=== PATIENT | male | born 1955 | race Caucasian/White ===

== ENCOUNTER → 2025-02-14 11:27 | Outpatient (BNVA) | payer MEDICARE, OTHER, SELFPAY | PROVIDERS: Visit Provider Student in an Organized Health Care Education/Training Program | DX: Z95.828 Presence of other vascular implants and grafts (principal) | CPT/HCPCS: 99204 ==

== ENCOUNTER → 2025-04-01 11:21 | Outpatient (BNVA) | payer MEDICARE, OTHER, SELFPAY | PROVIDERS: Visit Provider Student in an Organized Health Care Education/Training Program | DX: Z97.8 Presence of other specified devices (principal) | CPT/HCPCS: 99214 ==

== ENCOUNTER 2025-04-13 06:12 | Day surgery (SDC) | payer MEDICARE, OTHER, SELFPAY ==
[2025-04-13] VITALS (8 sets, daily range): BP systolic 141–162; BP diastolic 71–88; PULSE 84–87; RESP 16–18; TEMP 36.6–36.9; O2SAT 98–100
--- NOTE | 2025-04-13 06:43 | ANES.PREANE2 ---
Pre-Anesthetic Assessment Height/Weight: Height 5 ft 10 in Temp Pulse Resp BP Pulse Ox O2 Del Method 98.2 F 84 18 141/82 100 Room Air 04/13/25 06:41 04/13/25 06:41 04/13/25 06:41 04/13/25 06:41 04/13/25 06:41 04/13/25 06:41 Preop Diagnosis: Peritoneal dialysis Operation Date: 04/13/25 07:50 Proposed Procedures p Removal Central Venous Catheter 94316 Z97.8(Not Applicable) - Bright Randolph MD Was Beta Christiano taken within 24 hours: N/A Was Clonidine taken within 24 hours: N/A Social Tobacco and No alcohol Exam alert and oriented x 3 Airway Submandibular: within normal limits Cervical ROM: within normal limits Mallampati: Class III Dentition: false Anesthetic Plan ASA status: 3 Anesthesia: Choice Other: No prior issues with anesthesia NPO since yesterday evening History of hypertension on carvedilol Peritoneal dialysis nightly Patient was on peritoneal dialysis and needs catheter removed Current smoker, he has smoked all of his life he states. COPD with chronic cough Patient's showed me labs on her phone that were recently drawn at an outside facility. K+ was 6.0 at that time. Repeat BMP showing K+ 5.0 Medications/Allergies Home Medications ?Medication ?Instructions ?Recorded ?Confirmed ?Last Taken ?Type albuterol sulfate 2.5 mg/3 mL 2.5 mg continuous nebulization PRN 02/14/25 04/12/25 03/04/25 History (0.083 %) solution for nebulization PRN Shortness Of Breath albuterol sulfate 90 mcg/actuation 90 mcg inhalation DAILY 02/14/25 04/12/25 04/13/25 History aerosol inhaler allopurinol 100 mg tablet 100 mg PO DAILY 02/14/25 04/12/25 04/12/25 History aspirin 81 mg tablet,delayed 81 mg PO DAILY 02/14/25 04/12/25 04/12/25 History release (Adult Aspirin Regimen) atorvastatin 10 mg tablet 10 mg PO DAILY 02/14/25 04/12/25 04/12/25 History carvedilol 25 mg tablet 25 mg PO BID 02/14/25 04/12/25 04/12/25 History cetirizine 10 mg tablet 10 mg PO DAILY 02/14/25 04/12/25 04/12/25 History montelukast 10 mg tablet 10 mg PO BEDTIME 02/14/25 04/12/25 04/12/25 History vitamin B complex with vit C-folic 1 tab PO DAILY 02/14/25 04/12/25 04/12/25 History acid 800 mcg-zinc 12.5 mg tablet ([facility]) ondansetron 4 mg disintegrating 4 mg translingual DAILY PRN Nausea 04/01/25 04/12/25 04/12/25 History tablet And Vomiting budesonide-formoterol HFA 80 2 puff inhalation BID 04/13/25 04/13/25 04/13/25 History mcg-4.5 mcg/actuation aerosol inhaler (Breyna) Allergies Allergy/AdvReac Type Severity Reaction Status Date / Time hydrocodone Allergy Severe ALGY-Rash Verified 04/12/25 09:41 omeprazole (From Prilosec) Allergy Severe Unconscious Verified 04/12/25 09:41 Penicillins Allergy Severe ALGY-Rash Verified 04/12/25 09:41 sulfamethoxazole (From Allergy Severe ALGY-Rash Verified 04/12/25 09:41 Bactrim) trimethoprim (From Bactrim) Allergy Severe ALGY-Rash Verified 04/12/25 09:41 [facility] Anesthesia Social History Smoking and tobacco/nicotine status: former use of tobacco/nicotine Data Anesthesia 04/13/25 07:06
--- NOTE | 2025-04-13 07:03 | W.PM.OPSUD ---
Surgery/Procedure H&P Update DATE OF PROCEDURE: April 13, 2025 DATE H&P PERFORMED: 04/01/25 H&P UPDATE INFORMATION: I have reviewed H&P completed within last 30 days, I have examined patient prior to procedure, No changes to prior documentation and Risks and benefits of the procedure reviewed PREOP DIAGNOSIS: Peritoneal dialysis PLANNED PROCEDURE: Operation Date: 04/13/25 07:50 Proposed Procedures p Removal Central Venous Catheter 17770 Z97.8(Not Applicable) - Bright Randolph MD
[2025-04-13 07:40] LABS: Blood Urea Nitrogen 37 mg/dL (8-23); Calcium 8.3 mg/dL (8.5-10.5); Carbon Dioxide 23 mmol/L (22-29); Chloride 97 mmol/L (98-107); Glucose 138 mg/dL (65-115); Osmolality Calculated 297 mOsm/kg (285-295); Sodium 138 mmol/L (136-145)
[2025-04-13 07:43] LABS: Anion Gap 23.0 (5-19); Potassium 5.0 mmol/L (3.5-5.1)
--- NOTE | 2025-04-13 07:45 | SUR.PREOP ---
8279-received call from lab that CR level is critical at 9.3. RN was updated as well as anesthesia and surgeon.
--- NOTE | 2025-04-13 09:04 | P.OP_ITS ---
Operative Report Date of procedure: April 13, 2025 Pre-op diagnosis: Chronic kidney disease Post-op diagnosis: same Post-op findings: Tunnel dialysis catheter removed in its entirety. Tip sent for culture. Rest of catheter sent to pathology. Procedure done: Tunneled dialysis catheter removal Implants: N/A Specimens removed/disposition: Tunnel dialysis catheter removed in its entirety. Tip sent for culture. Rest of catheter sent to pathology. Pathology: Tunnel dialysis catheter removed in its entirety. Tip sent for culture. Rest of catheter sent to pathology. Surgeon: Bright Randolph MD Mailing Clerk: N/A Anesthesia: MAC Estimated blood loss (mL): 5 Complications: N/A Findings: Tunnel dialysis catheter removed in its entirety. Tip sent for culture. Rest of catheter sent to pathology. Condition: stable Disposition: same day Brief History: 70-year-old male with a tunneled dialysis catheter. Presented for tunneled dialysis catheter removal. Discussed risk and benefits and patient agreed to proceed with tunneled dialysis catheter removal. Procedure: Patient was taken to the operating room and his right chest was prepped and draped in a sterile manner. 1% lidocaine and 0.5% bupivicaine with epinephrine was infiltrated around the tunneled dialysis catheter. Using a 15 blade an incision over the cuff was made, the subcutaneous tissue was divided using electrocautery and cuff of the tunnel dialysis catheter was dissected free. I then proceeded to pull the tunnel dialysis catheter in its entirety. The tip was sent for culture. Rest of the catheter was sent to pathology. The wound was irrigated with saline, hemostasis ensured with electrocautery. Pressure was held along the catheter tract for 3 minutes. Skin was closed using subcuticular 4-0 monocryl. Glue was applied. The patient was transferred to the recovery room in stable condition.
[2025-04-13] MEDS: lidocaine-epi 1% 20 mL INJ INJECTION (09:17)
--- NOTE | 2025-04-13 10:18 | ANE.PACU2 ---
Inpatient post-anesthesia follow up: Airway intact: Yes Vital signs: Temperature 97.9 F Pulse Rate 86 Respiratory Rate 18 Blood Pressure 148/76 Pulse Oximetry 98 Oxygen Delivery Me thod Room Air Oxygen Flow Rate Fraction of Inspir ed Oxygen Hydration adequate: Yes Nausea and vomiting: No Pain level: 1 Mental status: Baseline
== END 2025-04-13 10:18 | disposition home or self-care (01) ==
PROVIDERS: Student in an Organized Health Care Education/Training Program; PCP Nurse Practitioner Family; Visit Provider Student in an Organized Health Care Education/Training Program
PROC: (CPT 36558; principal; 2025-04-13 07:50)
DX: I12.9 Hypertensive chronic kidney disease with stage 1 through stage 4 chronic kidney disease, or unspecified chronic kidney disease (principal); N18.9 Chronic kidney disease, unspecified; J44.9 Chronic obstructive pulmonary disease, unspecified; Z87.891 Personal history of nicotine dependence; Z79.82 Long term (current) use of aspirin
CPT/HCPCS: 36558; 36415; 80048; 87070; 87075; 87205; 88300; A4216; J2704; J3373; J7030; J7050; J9999

== ENCOUNTER → 2025-05-05 11:29 | Outpatient (BNVA) | payer MEDICARE, OTHER, SELFPAY | PROVIDERS: PCP Nurse Practitioner Family; Visit Provider Student in an Organized Health Care Education/Training Program | DX: Z98.890 Other specified postprocedural states (principal); Z97.8 Presence of other specified devices | CPT/HCPCS: 99213 ==